=== PATIENT | female | born 1950 | race Caucasian/White ===

== ENCOUNTER 2021-04-02 06:15 | Day surgery (SDC) | payer MEDICARE, OTHER, SELFPAY ==
[2021-03-28 09:44] VITALS: BMI 27.4
--- NOTE | 2021-04-01 14:04 | HO.ANESPROP2 ---
Documented by User: Blessing Norton NP 04/01/21 14:05 HPI - Anesthesia Eval Consult details Narrative: 70yo F for Colonoscopy FOR[facility]LY [facility] Past Medical History Medical History (Updated 03/28/21 @ 09:40 by Marylin Sotelo RN) Elevated cholesterol GERD (gastroesophageal reflux disease) HTN (hypertension) IBS (irritable bowel syndrome) Surgical History Surgical History (Updated 03/28/21 @ 09:40 by Marylin Sotelo RN) H/O colonoscopy History of bilateral knee replacement History of right hip replacement Social History Social History Patient Tobacco Use Status: Never used Tobacco Use of substances other than those prescribed or required for medical reasons: No Are you DNR?: No Advance Directives: No Advance Directives Information Provided: Yes Recently lost weight without trying: No Meds Allergies Allergy/AdvReac Type Severity Reaction Status Date / Time Penicillins Allergy Unknown Unknown Verified 03/28/21 09:44 Home Medications Medication Instructions Recorded Confirmed Last Taken Type esomeprazole magnesium 40 mg 40 mg PO DAILY 03/28/21 03/28/21 04/02/21 05:00 History capsule,delayed release (Nexium) 40 mg lisinopril 20 mg tablet 20 mg PO DAILY 03/28/21 03/28/21 04/02/21 05:00 History 20 mg multivitamin 1 tab PO DAILY 03/28/21 03/28/21 Unknown History simvastatin 20 mg tablet 20 mg PO BEDTIME 03/28/21 03/28/21 Unknown History solifenacin 5 mg tablet 5 mg PO DAILY 03/28/21 03/28/21 Unknown History triazolam 0.25 mg tablet 0.25 mg PO BEDTIME 03/28/21 03/28/21 Unknown History Exam Exam Date and Time: April 01, 2021 1404 Height,Weight and Vital Signs: Height 5 ft 5 in Weight 74.843 kg Assessment and Plan Assessment Anesthesia Assessment: Chart Reviewed Documented by User: Devika Roblero MD 04/02/21 07:46 PMFSH Past Medical History Medical History (Updated 03/28/21 @ 09:40 by Marylin Sotelo RN) Elevated cholesterol GERD (gastroesophageal reflux disease) HTN (hypertension) IBS (irritable bowel syndrome) Family History Family history of problems with anesthesia: No Surgical History Surgical History (Updated 03/28/21 @ 09:40 by Marylin Sotelo RN) H/O colonoscopy History of bilateral knee replacement History of right hip replacement History of Problems with Anesthesia: No Social History Social History Patient Tobacco Use Status: Never used Tobacco Use of substances other than those prescribed or required for medical reasons: No Are you DNR?: No Advance Directives: No Advance Directives Information Provided: Yes Recently lost weight without trying: No Meds Allergies Allergy/AdvReac Type Severity Reaction Status Date / Time Penicillins Allergy Unknown Unknown Verified 03/28/21 09:44 Home Medications Medication Instructions Recorded Confirmed Last Taken Type esomeprazole magnesium 40 mg 40 mg PO DAILY 03/28/21 03/28/21 04/02/21 05:00 History capsule,delayed release (Nexium) 40 mg lisinopril 20 mg tablet 20 mg PO DAILY 03/28/21 03/28/21 04/02/21 05:00 History 20 mg multivitamin 1 tab PO DAILY 03/28/21 03/28/21 Unknown History simvastatin 20 mg tablet 20 mg PO BEDTIME 03/28/21 03/28/21 Unknown History solifenacin 5 mg tablet 5 mg PO DAILY 03/28/21 03/28/21 Unknown History triazolam 0.25 mg tablet 0.25 mg PO BEDTIME 03/28/21 03/28/21 Unknown History Exam Height,Weight and Vital Signs: Height 5 ft 5 in Weight 74.843 kg Vital Signs Temp Pulse Resp BP Pulse Ox 04/02/21 06:34 97.2 F 69 16 153/68 H 97 b Airway Mallampati Class: II TM Dist: >3cm Neck ROM: Full Loose/Missing/Broken Teeth: No Heart: RRR Lungs: CTAB Assessment and Plan Assessment Anesthesia Assessment: Anesthesia Plan Discussed Final Anesthetic Review Family History of Problems with Anesthesia: No History of Problems with Anesthesia: No NPO: Yes ASA Class: II Final Preanesthetic Review: No Changes in Pt Med Stat, Meds/Allgs Chart Reviewed, Consent Obtained/Reviewed and Anes Risks/Benef Reviewed Patient Risk: Low Procedure Risk: Low Assessment/Block/Sedation in SS: Assess/Block/Sedation-SS Anesthetic Plan Anesthetic Plan: MAC: Disposition: Standard PACU
[2021-04-02 06:34] VITALS: BP 153/68; PULSE 69; RESP 16; TEMP 36.2; O2SAT 97; BMI 27.4
[2021-04-02] MEDS: Lactated Ringers 1,000 ML 100 ML IVCONT (06:51)
--- NOTE | 2021-04-02 07:27 | MHC.SHP ---
Pre-Procedural Eval Section A Date of Service: 04/02/21 Section B Chief Complaint: screening Details of Present Illness: see H&P no changes Relevant Family History (Specify if Yes): No Relevant Social History: None Present Medications: see Short Stay Collaborative assessment Medical History: No relevant PMH Allergies: Allergies Allergy/AdvReac Type Severity Reaction Status Date / Time Penicillins Allergy Unknown Unknown Verified 03/28/21 09:44 Review of Systems Sugical H&P ROS: Negative: Constitution, Cardiovascular, Respiratory, Neurological, Psychiatric, Hem-Onc, Allergic/Immunologic, Gastrointestinal, Genitourinary, Musculoskeletal, Integumentary, Endocrine and Eyes/Ears/Nose/Throat Exam Surgical H&P Exam: Normal: HEENT, Normal: Heart, Normal: Lungs, Normal: Extremities, Normal: Abdomen, Normal: Skin and Normal: Neurological Plan Diagnosis/Plan: Unchanged I have reviewed the history and physical and performed a pertinent physical examination on my patient. No changes have occurred unless specified.
--- NOTE | 2021-04-02 08:12 | P.BOP_ITS ---
Brief Operative Note Date of Service: 04/02/21 Pre-op diagnosis: screening Post-op diagnosis: same (colon polyps) Procedure: colonoscopy Surgeon: Ramirez Wilkins Anesthesia: MAC Was an [employer] used for this Procedure?: No Estimated blood loss (mL): 2 Pathology: other (polyps x2) Condition: stable Disposition: PACU
[2021-04-02 08:15] VITALS: BP 137/71; PULSE 67; RESP 16; TEMP 36.3; O2SAT 99
[2021-04-02 08:31] VITALS: BP 133/72; PULSE 63; RESP 16; TEMP 36.3; O2SAT 99
--- NOTE | 2021-04-02 08:33 | OP_ITS ---
SURGEON: Ramirez Wilkins MD INDICATIONS: Colon cancer screening and prior history of adenomatous colon polyps. PREOPERATIVE DIAGNOSIS: POSTOPERATIVE DIAGNOSIS: PROCEDURE PERFORMED: Colonoscopy to the terminal ileum with biopsies. ESTIMATED BLOOD LOSS: COMPLICATIONS: ANESTHESIA: ASSISTANTS: SPECIMENS: MEDICATIONS: Monitored anesthesia care. DESCRIPTION OF PROCEDURE: History and physical performed. The risks and benefits of the procedure were explained to the patient. Informed consent was obtained. The patient was placed in the left lateral decubitus position. A digital rectal exam was performed and was found to be normal. The Olympus pediatric video colonoscope was introduced into the rectum and advanced to the cecum without difficulty. The cecum was identified by transillumination, palpation, and identification of ileocecal valve. Examination was performed and the scope was removed. She tolerated the procedure well and was taken to recovery area in stable condition. FINDINGS: The terminal ileum was not examined. There was some liquid stool present in the cecum and ascending colon, which was washed and suctioned. This limited the examination for detection of small polyps. This was washed and suctioned. There was mild sigmoid diverticulosis with luminal narrowing and the sigmoid was somewhat tortuous. Two polyps were identified and removed with biopsy forceps. Both measured less than 5 mm. These were located at 60 cm and 50 cm. No other polyps were identified. Retroflexed examination was normal. IMPRESSION: Colon polyps. RECOMMENDATION: Follow up the biopsy results. MD SARAH Oro/MAL / [id number]
== END 2021-04-02 09:07 | disposition home or self-care (01) ==
PROVIDERS: PCP Internal Medicine; Visit Provider Internal Medicine Gastroenterology
PROC: 0DJD8ZZ Inspection of Lower Intestinal Tract, Via Natural or Artificial Opening Endoscopic (ICD-10-PCS; CPT 45378; principal; 2021-04-02 07:30)
DX: Z12.11 Encounter for screening for malignant neoplasm of colon (principal); Z86.010 Personal history of colon polyps; K63.5 Polyp of colon; K57.30 Diverticulosis of large intestine without perforation or abscess without bleeding; K58.9 Irritable bowel syndrome, unspecified; K21.9 Gastro-esophageal reflux disease without esophagitis; I10 Essential (primary) hypertension; Z88.0 Allergy status to penicillin; Z79.899 Other long term (current) drug therapy
CPT/HCPCS: 45380; 88305